=== PATIENT | female | born 1985 | race Two or more races ===

== ENCOUNTER 2023-10-17 11:04 | Emergency (ER) | payer MEDICAID, OTHER ==
[~2023-10-17] VITALS: Ht 157.5 cm; Wt 45.5 kg
[2023-10-17 11:23] LABS: Basophils # (auto) 0.1 10 ^3/uL (0-0.2); Basophils % (auto) 0.4 % (0.0-2.0); Eosinophils # (auto) 0.2 10 ^3/uL (0-0.8); Eosinophils % (auto) 1.3 % (0.0-7.0); Hematocrit 39.9 % (36.0-46.0); Hemoglobin 12.7 g/dL (12.2-16.2); Lymphocytes # (auto) 3.1 10 ^3/uL (0.4-5.4); Lymphocytes % (auto) 24.6 % (10.0-50.0); Mean Corpuscular Hemoglobin 27.4 pg (28.0-32.0); Mean Corpuscular Hgb Conc. 31.9 g/dL (32.0-36.0); Mean Corpuscular Volume 85.9 fL (80.0-100.0); Monocytes # (auto) 1.1 10 ^3/uL (0-1.3); Monocytes % (auto) 8.5 % (0.0-12.0); Neutrophils # (auto) 8.3 10 ^3/uL (1.6-8.6); Neutrophils % (auto) 65.2 % (37.0-80.0); Nucleated Red Blood Cells % 0.1 %; Red Blood Cells 4.65 10^6/uL (4.0-5.20); Red Cell Distribution Width 13.9 % (11.8-14.3); White Blood Cell 12.7 10^3/uL (4.4-10.8)
[2023-10-17 11:38] LABS: Alanine Aminotransferase 21 U/L (7-40); Albumin 4.5 g/dL (3.2-4.8); Alkaline Phosphatase 73 U/L (46-116); Anion Gap 7 (5-15); Aspartate Aminotransferase 16 U/L (13-40); Blood Urea Nitrogen 14 mg/dL (9-23); Calcium 9.5 mg/dL (8.5-10.1); Carbon Dioxide 22 mmol/L (20-30); Chloride 110 mmol/L (98-107); Glucose 94 mg/dL (74-106); Potassium 3.9 mmol/L (3.5-5.1); Sodium 139 mmol/L (136-145)
[2023-10-17 11:39] LABS: Bilirubin, Total 0.3 mg/dL (0.2-1.0)
[2023-10-17 11:47] LABS: Urine Bacteria NONE SEEN /hpf (None Seen); Urine Blood Negative /uL (Negative); Urine Clarity Clear (Clear); Urine Color Colorless (Yellow); Urine Protein, UAD Negative (Negative); Urine Specific Gravity 1.005 (1.001-1.035); Urine Urobilinogen Normal (Negative); Urine WBC 2 /hpf (0 - 5); Urine pH 6.5 (5.0-8.0)
[2023-10-17] MEDS ORDERED: IBU600T PO (12:03)
[2023-10-17 13:30] VITALS: BP 122/74; PULSE 87; RESP 18; TEMP 98.6; O2SAT 100
== END 2023-10-17 13:32 | disposition home or self-care (01) ==
LOC: ER 11:04
DX: R09.1 Pleurisy (principal); Z90.710 Acquired absence of both cervix and uterus; Z79.1 Long term (current) use of non-steroidal anti-inflammatories (NSAID)
CPT/HCPCS: 36415; 71046; 80053; 81001; 84484; 85025; 93005

== ENCOUNTER 2024-02-10 08:56 | Emergency (ER) | payer MEDICAID ==
[~2024-02-10] VITALS: Ht 152.4 cm; Wt 42.4 kg
[~2024-02-10 08:56] MED LIST: IBU600T PO
[2024-02-10 09:05] VITALS: TEMP 97.8
[2024-02-10 09:10] VITALS: BP 128/72; PULSE 90; RESP 16; O2SAT 100
[2024-02-10] MEDS: diphenhdrAMINE HCL 25 MG CAP PO ONE (11:09)
[2024-02-10] MEDS: KETOROLAC TROMETH 30 MG/ML 1ML VIAL IM ONE (11:10)
[2024-02-10] MEDS: PROCHLORPERAZINE EDISYLATE 5 MG/ML 2ML VIAL IM ONE (11:10)
[2024-02-10] MEDS ORDERED: NAP500T PO (11:59)
[2024-02-10] MEDS ORDERED: RIBO400T PO (11:59)
[2024-02-10] MEDS ORDERED: MAGN400T40 PO (11:59)
== END 2024-02-10 12:05 | disposition home or self-care (01) ==
LOC: ER 08:56
DX: G44.209 Tension-type headache, unspecified, not intractable (principal); Z90.710 Acquired absence of both cervix and uterus
CPT/HCPCS: 96372; 99284; J0780; J1885